=== PATIENT | female | born 1965 | race Caucasian/White ===

== ENCOUNTER 2020-09-26 12:11 | Emergency (ER) | payer MEDICAID ==
[~2020-09-26] VITALS: Ht 162.6 cm; Wt 94.0 kg
[2020-09-26] MEDS ORDERED: ONDANSETRON HCL 4MG/2ML INJ IV STA (13:00)
[2020-09-26] MEDS ORDERED: SODIUM CHLORIDE 0.9% 1,000 ML IV ONE (13:00)
[2020-09-26] MEDS ORDERED: MORPHINE SULFATE 4 MG/ML CPJ (NOT FOR IM USE) IV STA (13:00)
[2020-09-26 14:27] LABS: BASOPHILS % 0.5 % (0.0-2.0); EOSINOPHILS % 1.6 % (0.0-5.0); HEMOGLOBIN. 12.5 g/dL (12.0-16.0); LYMPHOCYTES % 17.4 % (20.0-50.0); MEAN CORPUSCULAR HEMOGLOBIN 27.5 pg (28.0-32.0); MEAN PLATELET VOLUME 11.2 fl (7.4-10.4); MONOCYTES % 6.4 % (2.0-8.0); NEUTROPHILS % 74.1 % (40.0-76.0); PLATELET 193 x1000/uL (130-400); RED BLOOD CELL COUNT 4.52 mill/uL (4.2-5.4); RED CELL DISTRIBUTION WIDTH 16.1 % (11.6-14.6)
[2020-09-26 14:34] LABS: CHLORIDE 112 mEq/L (98-107)
[2020-09-26 14:37] LABS: CLARITY URINE CLOUDY (CLEAR); COLOR URINE DARK YELLOW (YELLOW); INR 1.1; KETONES URINE 4+ (NEGATIVE); LEUKOCYTE ESTERASE URINE TRACE (NEGATIVE); NITRITE URINE NEGATIVE (NEGATIVE); OCCULT BLOOD URINE NEGATIVE (NEGATIVE); PH URINE 5.5 (4.5-8.0); PROTEIN URINE 2+ (NEGATIVE); PROTHROMBIN TIME 11.4 sec (9.6-11.0); SPECIFIC GRAVITY URINE 1.038 (1.005-1.030)
[2020-09-26] MEDS ORDERED: CEFTRIAXONE 1 G PREMIX 50 ML IV NR (16:30)
[2020-09-26] MEDS ORDERED: IOHEXOL-300 100 ML BOTTLE ONE (17:04)
[2020-09-26 18:30] VITALS: BP 115/67
== END 2020-09-26 19:08 | disposition short-term general hospital (02) ==
LOC: ER 12:11 → CANBEDREQ 19:25
DX: R10.13 Epigastric pain (principal); R11.2 Nausea with vomiting, unspecified; I10 Essential (primary) hypertension; Z98.84 Bariatric surgery status
CPT/HCPCS: 36415; 71045; 74177; 80053; 81003; 83690; 84484; 85025; 85610; 93005; 96365; 96375; 99285; J0696; J2270; J2405; J7030; Q9967